=== PATIENT | female | born 1970 | race Caucasian/White ===

== ENCOUNTER 2024-08-06 11:24 | Emergency (ER) | payer SELFPAY ==
[2024-08-06 11:30] VITALS: BP 129/70; PULSE 68; RESP 18; TEMP 97.7; BMI 33.3
[2024-08-06] MEDS ORDERED: predniSONE 20 MG TABLET (UD) ONE (12:37)
[2024-08-06] MEDS ORDERED: KETOROLAC TROMETHAMINE 30 MG/1 ML VIAL ONE (12:37)
[2024-08-06] MEDS ORDERED: LIDOCAINE 4% PATCH TP ONE (12:37)
[2024-08-06] MEDS ORDERED: ACETAMINOPHEN 500 MG TABLET (FP) ONE (12:37)
[2024-08-06] MEDS: LIDOCAINE 4% PATCH TP ONE (12:43)
[2024-08-06] MEDS: KETOROLAC TROMETHAMINE 30 MG/1 ML VIAL IM ONE (12:43)
[2024-08-06] MEDS: predniSONE 20 MG TABLET (UD) PO ONE (12:43)
[2024-08-06] MEDS: ACETAMINOPHEN 500 MG TABLET (FP) PO ONE (12:43)
[2024-08-06] MEDS ORDERED: LIDOCAINE PATCH REMOVAL MC ONE (22:00)
== END 2024-08-06 13:27 | disposition home or self-care (01) ==
LOC: JERFT 11:24
PROC: 3E0133Z Introduction of Anti-inflammatory into Subcutaneous Tissue, Percutaneous Approach (ICD-10-PCS; principal; 2024-08-06)
DX: M54.41 Lumbago with sciatica, right side (principal); G89.29 Other chronic pain
CPT/HCPCS: 99284-25